=== PATIENT | male | born 1955 | race Caucasian/White ===

== ENCOUNTER 2019-11-30 23:01 | Emergency (ER) | payer MEDICARE, OTHER ==
[~2019-11-30] VITALS: Ht 185.4 cm; Wt 80.3 kg
[2019-11-30] MEDS ORDERED: DIATR MEGLU/DIATRIZOATE SODIUM 30 ML BOTTLE (GASTROGRAPHIN) ONE (23:25)
--- NOTE | 2019-11-30 23:54 | NUR ---
XRAY AT BEDSIDE.
--- NOTE | 2019-11-30 23:58 | NUR ---
[facility] CALLED. NO AMBULANCE AVAILABLE.
--- NOTE | 2019-12-01 00:23 | NUR ---
[facility] CALLED. ETA 07
--- NOTE | 2019-12-01 01:17 | NUR ---
CALLED [facility] [phone] @ 0750 PER ESEQUIEL
--- NOTE | 2019-12-01 03:04 | NUR ---
REPORT GIVEN TO [facility]
--- NOTE | 2019-12-01 04:06 | NUR ---
Patient discharged to facility in stable condition via ambulance. Written and verbal after care instructions given. Patient verbalizes understanding of instruction.
--- NOTE | 2019-12-01 04:06 | NUR ---
REPORT GIVEN TO EMS. PT STABLE FOR TRANSFER
[2019-12-01 04:11] VITALS: BP 134/78
== END 2019-12-01 04:11 ==
LOC: ER 23:10
DX: K94.23 Gastrostomy malfunction (principal); I10 Essential (primary) hypertension; E78.5 Hyperlipidemia, unspecified; Z86.73 Personal history of transient ischemic attack (TIA), and cerebral infarction without residual deficits
CPT/HCPCS: 43762; 74018; 99284; Q9963

== ENCOUNTER 2021-11-30 17:06 | Emergency (ER) | payer MEDICARE, OTHER ==
[~2021-11-30] VITALS: Ht 177.8 cm; Wt 86.2 kg
--- NOTE | 2021-11-30 17:11 | NUR ---
PT TEOFILO FROM [facility], SENT BY PMD FOR NECK EVAL. PT NOTED WITH R SIDED NECK SWELLING/REDNESS. DENIES PAIN, AAO. STABLE VITALS. AWAITING MD LIDNO.
[2021-11-30] MEDS ORDERED: LISI10TA29 PO (17:26)
[2021-11-30] MEDS ORDERED: NA P133E RC (17:26)
[2021-11-30] MEDS ORDERED: SERT25TA PO (17:26)
[2021-11-30] MEDS ORDERED: MAGN400O6 PO (17:26)
[2021-11-30] MEDS ORDERED: CHOL100043 PO (17:26)
[2021-11-30] MEDS ORDERED: BACL10TA PO (17:26)
[2021-11-30] MEDS ORDERED: LACT1CAP71 PO (17:26)
[2021-11-30] MEDS ORDERED: SENN-261 PO (17:26)
[2021-11-30] MEDS ORDERED: CLON0.1T PO (17:26)
[2021-11-30] MEDS ORDERED: SERT50TA PO (17:26)
[2021-11-30] MEDS ORDERED: POLY17PO4 PO (17:26)
[2021-11-30] MEDS ORDERED: DOCU-141 PO (17:26)
[2021-11-30] MEDS ORDERED: FAMO20TA8 PO (17:26)
[2021-11-30] MEDS ORDERED: CYAN-51 PO (17:26)
[2021-11-30] MEDS ORDERED: ACET-868 PO (17:26)
[2021-11-30] MEDS ORDERED: CLOP75TA15 PO (17:26)
[2021-11-30] MEDS ORDERED: CARV12.52 PO (17:26)
[2021-11-30] MEDS ORDERED: ASPI-1169 PO (17:26)
[2021-11-30] MEDS ORDERED: ATOR40TA PO (17:26)
[2021-11-30] MEDS ORDERED: DIPH25CA51 PO (17:26)
[2021-11-30] MEDS ORDERED: CRAN3875 PO (17:26)
[2021-11-30] MEDS ORDERED: ACET-2605 PO (17:26)
[2021-11-30] MEDS ORDERED: CALC500T52 PO (17:26)
[2021-11-30] MEDS ORDERED: CRAN425C6 PO (17:26)
[2021-11-30] MEDS ORDERED: TAMS-12 PO (17:26)
[2021-11-30] MEDS ORDERED: GABA-532 PO (17:26)
--- NOTE | 2021-11-30 18:00 | NUR ---
Usman barkley in [facility] - 11/30/21 at 1833 by DANELLE GERARDO MARIE AT BEDSIDE FOR EVAL
--- NOTE | 2021-11-30 19:08 | NUR ---
DR ORELLANA AT BEDSIDE FOR EVAL
--- NOTE | 2021-11-30 19:32 | NUR ---
18g established at [facility] blood drawn and sent to lab
[2021-11-30 19:50] LABS: BASOPHILS % (AUTO) 0.5 % (0.0-2.0); EOSINOPHILS % (AUTO) 8.5 % (0.0-6.0); HEMATOCRIT 37 % (39-51); HEMOGLOBIN 12.6 g/dL (13.5-17.5); LYMPHOCYTES # (AUTO) 2.9 K/uL (0.8-4.8); MEAN CORPUSCULAR HGB CONC 34 g/dl (31.0-36.0); MEAN CORPUSCULAR VOLUME 92 fL (80-96); MONOCYTES # (AUTO) 0.8 K/uL (0.1-1.30); MONOCYTES % (AUTO) 8.7 % (2.0-12.0); NEUTROPHILS # (AUTO) 4.8 K/uL (1.8-8.9); NEUTROPHILS % (AUTO) 51.3 % (43.0-81.0); PLATELET COUNT (AUTO) 259 K/uL (150-450); RED BLOOD CELL COUNT(AUTO) 4.06 MIL/uL (4.5-6.0); WHITE BLOOD COUNT (AUTO) 9.3 K/uL (4.3-11.0)
[2021-11-30 20:16] LABS: CALCIUM, SERUM 8.4 mg/dL (8.5-10.1); CREATININE 0.8 mg/dL (0.6-1.3); POTASSIUM 4.1 mmol/L (3.5-5.1)
[2021-11-30] MEDS ORDERED: IOHEXOL-300 100 ML VIAL IV ONE (20:30)
[2021-11-30] MEDS ORDERED: CT SWABBABLE VALVE TRANS SET 1 EA INFUS.SET MC ONE (20:30)
[2021-11-30] MEDS ORDERED: IV NS 0.9% 250 ML IV ONE (20:30)
--- NOTE | 2021-11-30 20:39 | NUR ---
PT BEING TRANSPORTED TO CT VIA [facility]
--- NOTE | 2021-11-30 20:51 | NUR ---
PT RETURNED FROM CT SCAN-
--- NOTE | 2021-11-30 21:27 | NUR ---
dr roberts consulting with vascular surgeon
--- NOTE | 2021-11-30 21:35 | NUR ---
DR ORELLANA ON THE PHONE WITH DR EDWARD CHICAS
--- NOTE | 2021-11-30 22:06 | NUR ---
[facility] TRANSPORT ARRANGED WITH [facility] ETA 45 MINS. REPORT GIVEN TO [facility] AND REHANB SPOKE TO CANELO.
--- NOTE | 2021-11-30 23:36 | NUR ---
PT PICKED UP BY [facility] [address] IN STABLE CONDITION. PT DISCHARGE INSTRUCTIONS AND CD PROVIDED TO [facility] [employer].
[2021-11-30 23:38] VITALS: BP 113/63
== END 2021-11-30 23:38 | disposition home or self-care (01) ==
LOC: ER 17:15
DX: I65.21 Occlusion and stenosis of right carotid artery (principal); I10 Essential (primary) hypertension; R22.1 Localized swelling, mass and lump, neck; E78.5 Hyperlipidemia, unspecified; Z79.899 Other long term (current) drug therapy; Z86.73 Personal history of transient ischemic attack (TIA), and cerebral infarction without residual deficits
CPT/HCPCS: 99285; 70491; 85025; 80048; 36415; J7050; Q9967

== ENCOUNTER 2023-07-27 14:53 | Inpatient (IN) | payer MEDICARE, OTHER ==
[~2023-07-27] VITALS: Ht 188 cm; Wt 79.4 kg
[~2023-07-27 14:53] MED LIST: ACET-2605 PO; ACET-868 PO; ASPI-1169 PO; ATOR40TA PO; BACL10TA PO; CALC500T52 PO; CARV12.52 PO; CHOL100043 PO; CLON0.1T PO; CLOP75TA15 PO; CRAN3875 PO; CRAN425C6 PO; CYAN-51 PO; DIPH25CA51 PO; DOCU-141 PO; FAMO20TA8 PO; GABA-532 PO; LACT1CAP71 PO; LISI10TA29 PO; MAGN400O6 PO; NA P133E RC; POLY17PO4 PO; SENN-261 PO; SERT25TA PO; SERT50TA PO; TAMS-12 PO
[2023-07-27 15:38] LABS: HEMATOCRIT 38 % (39-51); HEMOGLOBIN 12.5 g/dL (13.5-17.5); MEAN CORPUSCULAR HEMOGLOBIN 30 PG (26.0-33.0); MEAN CORPUSCULAR HGB CONC 33 g/dl (31.0-36.0); MEAN CORPUSCULAR VOLUME 91 fL (80-96); PLATELET COUNT (AUTO) 171 K/uL (150-450); RED CELL DISTRIBUTION WIDTH 15.4 % (11.5-15.0)
[2023-07-27 15:39] LABS: BASOPHILS # (AUTO) 0.1 K/uL (0.0-0.2); BASOPHILS % (AUTO) 0.3 % (0.0-2.0); LYMPHOCYTES # (AUTO) 1.1 K/uL (0.8-4.8); MONOCYTES # (AUTO) 1.2 K/uL (0.1-1.30); MONOCYTES % (AUTO) 3.3 % (2.0-12.0); NEUTROPHILS # (AUTO) 35.1 K/uL (1.8-8.9); NEUTROPHILS % (AUTO) 93.4 % (43.0-81.0)
[2023-07-27 15:40] LABS: WHITE BLOOD COUNT (AUTO) 37.6 K/uL (4.3-11.0)
[2023-07-27 15:46] LABS: CALCIUM, SERUM 8.5 mg/dL (8.5-10.1); CARBON DIOXIDE 25 mmol/L (21-32); CHLORIDE 106 mmol/L (98-107); CREATININE 2.8 mg/dL (0.6-1.3); GLUCOSE 110 mg/dL (74-106); POTASSIUM 4.4 mmol/L (3.5-5.1); SODIUM SERUM 138 mmol/L (136-145); UREA NITROGEN, BLOOD 59 mg/dL (7-18)
[2023-07-27] MEDS ORDERED: VARE1TAB PO (15:46)
[2023-07-27] MEDS ORDERED: MIRT7.5T10 PO (15:46)
[2023-07-27] MEDS ORDERED: ACET-868 PO (15:46)
[2023-07-27] MEDS ORDERED: BACL10TA PO (15:46)
[2023-07-27] MEDS ORDERED: TRAM50TA2 PO (15:46)
[2023-07-27] MEDS ORDERED: ONDA-97 PO (15:46)
[2023-07-27 15:59] LABS: ALANINE AMINOTRANSFERASE 624 U/L (12-78); ALBUMIN 2.8 g/dL (3.4-5.0); ALKALINE PHOSPHATASE 75 U/L (46-116); ASPARTATE AMINOTRANSFERASE 230 U/L (15-37); BILIRUBIN,DIRECT 0.2 mg/dL (0.0-0.2); BILIRUBIN,TOTAL 0.6 mg/dL (0.2-1.0); NT-PRO BNP 5609 pg/mL (0-125); TOTAL PROTEIN, SERUM 6.8 g/dL (6.4-8.2)
[2023-07-27 16:34] LABS: BAND % (MANUAL) 2 % (0.0-5.0); LYMPHOCYTES % (MANUAL) 3 % (16-48); MONOCYTES % (MANUAL) 4 % (0-11.0); NEUTROPHILS % (MANUAL) 91 (42-76)
[2023-07-27 16:35] LABS: ANISOCYTOSIS 1+; PLATELET ESTIMATE ADEQUATE
[2023-07-27] MEDS: PIPERACILLIN /TAZOBACTAM 3.375 G in IV D5W 50 ML IV ONE (16:39)
[2023-07-27] MEDS: VANCOMYCIN 1 GM in IV D5W 250 ML IV ONE (17:20)
[2023-07-27] MEDS: AZITHROMYCIN 500 MG in IV D5W 250 ML IV ONE (18:49)
[2023-07-27] MEDS: IV NS 0.9% 1,000 ML BAG IV ONE (18:50)
[2023-07-27 20:00] VITALS: BP 104/61; TEMP 98.1; O2SAT 95
[2023-07-27] MEDS ORDERED: CEFEPIME 1 GM in IV D5W 50 ML IV SCH (21:00)
[2023-07-27] MEDS: IV D5/0.45 NACL 1,000 ML IV PRN (23:34)
[2023-07-27] MEDS ORDERED: CEFEPIME 1 GM VIAL ONE (23:35)
[2023-07-27] MEDS ORDERED: DOXYCYCLINE 100 MG VIAL ONE (23:36)
[2023-07-27] MEDS ORDERED: METRONIDAZOLE 500MG/ NS 100ML 100 ML IV ONE (23:36)
[2023-07-28] VITALS: BP 90/76; TEMP 98.2; O2SAT 95
[2023-07-28] MEDS: METRONIDAZOLE 500MG/ NS 100ML 500 MG in PREMIX 1 EA IV SCH (00:21)
[2023-07-28] MEDS: DOXYCYCLINE 100 MG in IV D5W 100 ML IV SCH (00:44)
[2023-07-28] MEDS: CEFEPIME HCL 2 GM in IV D5W 100 ML IV SCH (00:49)
[2023-07-28 08:00] VITALS: BP 104/70; TEMP 98.1; O2SAT 96
[2023-07-28 08:04] LABS: APPEARANCE,URINE CLOUDY (CLEAR); BILIRUBIN,URINE 1+ (NEGATIVE); BLOOD, URINE 3+ Ery/uL (NEGATIVE); COLOR,URINE DARK YELLOW (YELLOW); KETONES,URINE TRACE mg/dL (NEGATIVE); LEUKOCYTE ESTERASE ,URINE 2+ (NEGATIVE); NITRITE, URINE NEGATIVE (NEGATIVE); PROTEIN,URINE 2+ mg/dl (NEGATIVE); UGLUCOSE NEGATIVE (NEGATIVE)
[2023-07-28 08:38] LABS: ADD URINE CULTURE YES; BACTERIA,URINE Few /HPF (None Seen); SQUAMOUS EPITHELIAL CELL,UR Rare /HPF (None Seen); WBC,URINE 51-80 /HPF (0-3)
[2023-07-28] MEDS: ACETAMINOPHEN 325 MG TABLET PO PRN (08:55)
[2023-07-28 11:13] LABS: BASOPHILS % (AUTO) 0.1 % (0.0-2.0); EOSINOPHILS # (AUTO) 0.3 K/uL (0.0-0.7); EOSINOPHILS % (AUTO) 0.9 % (0.0-6.0); HEMATOCRIT 34 % (39-51); HEMOGLOBIN 11.2 g/dL (13.5-17.5); LYMPHOCYTES # (AUTO) 0.8 K/uL (0.8-4.8); LYMPHOCYTES % (AUTO) 2.6 % (20.0-44.0); MEAN CORPUSCULAR HEMOGLOBIN 30 PG (26.0-33.0); MEAN CORPUSCULAR HGB CONC 33 g/dl (31.0-36.0); MEAN CORPUSCULAR VOLUME 91 fL (80-96); MONOCYTES # (AUTO) 0.7 K/uL (0.1-1.30); MONOCYTES % (AUTO) 2.3 % (2.0-12.0); NEUTROPHILS # (AUTO) 28.9 K/uL (1.8-8.9); NEUTROPHILS % (AUTO) 94.1 % (43.0-81.0); PLATELET COUNT (AUTO) 143 K/uL (150-450)
[2023-07-28 11:37] LABS: WHITE BLOOD COUNT (AUTO) 30.7 K/uL (4.3-11.0)
[2023-07-28 11:38] LABS: CALCIUM, SERUM 8.3 mg/dL (8.5-10.1); CREATININE 1.5 mg/dL (0.6-1.3); MAGNESIUM 1.9 mg/dL (1.8-2.4); PHOSPHORUS 2.4 mg/dL (2.5-4.9); POTASSIUM 3.6 mmol/L (3.5-5.1)
[2023-07-28 12:00] VITALS: BP 101/66; TEMP 98.8; O2SAT 95
[2023-07-28 13:31] LABS: ANISOCYTOSIS 1+; BAND % (MANUAL) 2 % (0.0-5.0); BASOPHILS % (MANUAL) 0 % (0.0-2.0); EOSINOPHILS % (MANUAL) 0 % (0-4); LYMPHOCYTES % (MANUAL) 6 % (16-48); MONOCYTES % (MANUAL) 5 % (0-11.0); NEUTROPHILS % (MANUAL) 87 (42-76); PLATELET ESTIMATE DECREASED
[2023-07-28 16:00] VITALS: BP 111/64; TEMP 98.1; O2SAT 97
[2023-07-28] MEDS: NEUTRA PHOS 1 POWD.PACKET PO ONE (16:45)
[2023-07-28 20:00] VITALS: BP 121/78; TEMP 100.6; O2SAT 97
[2023-07-28] MEDS: DOCUSATE SODIUM 100 MG CAPSULE PO SCH (20:59)
[2023-07-28] MEDS: POLYETHYLENE GLYCOL 3350 17 GM POWD.PACK PO SCH (22:39)
[2023-07-29] VITALS: BP 102/68; TEMP 98.4; O2SAT 97
[2023-07-29 04:00] VITALS: BP_SYST 110; BP_SYST 116; BP_DIAS 71; TEMP 97.3; TEMP 98.6; O2SAT 98
[2023-07-29 07:30] VITALS: BP 134/95; TEMP 98.1; O2SAT 97
[2023-07-29 10:18] LABS: BASOPHILS # (AUTO) 0.1 K/uL (0.0-0.2); BASOPHILS % (AUTO) 0.4 % (0.0-2.0); EOSINOPHILS # (AUTO) 0.3 K/uL (0.0-0.7); EOSINOPHILS % (AUTO) 1.6 % (0.0-6.0); HEMATOCRIT 38 % (39-51); HEMOGLOBIN 12.8 g/dL (13.5-17.5); LYMPHOCYTES # (AUTO) 0.7 K/uL (0.8-4.8); LYMPHOCYTES % (AUTO) 3.9 % (20.0-44.0); MEAN CORPUSCULAR HEMOGLOBIN 31 PG (26.0-33.0); MEAN CORPUSCULAR HGB CONC 33 g/dl (31.0-36.0); MEAN CORPUSCULAR VOLUME 92 fL (80-96); MONOCYTES # (AUTO) 0.6 K/uL (0.1-1.30); MONOCYTES % (AUTO) 3.3 % (2.0-12.0); NEUTROPHILS # (AUTO) 16.3 K/uL (1.8-8.9); NEUTROPHILS % (AUTO) 90.8 % (43.0-81.0); PLATELET COUNT (AUTO) 155 K/uL (150-450); RED BLOOD CELL COUNT(AUTO) 4.18 MIL/uL (4.5-6.0); RED CELL DISTRIBUTION WIDTH 15.3 % (11.5-15.0)
[2023-07-29 10:26] LABS: CALCIUM, SERUM 8.5 mg/dL (8.5-10.1); POTASSIUM 3.5 mmol/L (3.5-5.1)
[2023-07-29 16:00] VITALS: BP 145/94; TEMP 98.4; O2SAT 98
[2023-07-29] MEDS: LIDOCAINE 5% (PATCH) 1 EA PATCH TP SCH (17:10)
[2023-07-29 20:00] VITALS: BP 149/68; TEMP 98.4; O2SAT 96
[2023-07-30] VITALS: BP 139/86; TEMP 99.1; O2SAT 96
[2023-07-30 04:00] VITALS: BP 137/86; TEMP 98.2; O2SAT 96
[2023-07-30 07:30] VITALS: BP 160/97; TEMP 98.2; O2SAT 96
[2023-07-30 16:00] VITALS: BP 163/96; TEMP 98.6; O2SAT 96
== END 2023-07-30 18:19 | DRG 871 ==
LOC: ER 15:23 → MED 17:50 → TELE 19:14
PROVIDERS: ADMIT Internal Medicine Nephrology; ATTEND Internal Medicine Nephrology
DX: A41.9 Sepsis, unspecified organism (principal); G92.8 Other toxic encephalopathy; J18.9 Pneumonia, unspecified organism; N17.9 Acute kidney failure, unspecified; I69.354 Hemiplegia and hemiparesis following cerebral infarction affecting left non-dominant side; N39.0 Urinary tract infection, site not specified; I10 Essential (primary) hypertension; D64.9 Anemia, unspecified; E78.5 Hyperlipidemia, unspecified; K59.00 Constipation, unspecified; Z79.82 Long term (current) use of aspirin; R53.1 Weakness; Z20.822 Contact with and (suspected) exposure to COVID-19; E86.9 Volume depletion, unspecified; B96.89 Other specified bacterial agents as the cause of diseases classified elsewhere; R74.01 Elevation of levels of liver transaminase levels; N20.0 Calculus of kidney
CPT/HCPCS: 36415; 71045-TC; 74018; 76700-TC; 80048-TC; 80076-TC; 81001; 82962-TC; 83735-TC; 83880; 84100-TC; 84484-TC; 85025-TC; 87040-TC; 87081-TC; 87086-TC; A4216; A4223; G0378; J0456; J0692; J2543; J3370; J3490; J7030; J7050; J7060